=== PATIENT | male | born 1995 | race Two or more races ===

== ENCOUNTER 2019-03-06 05:01 | Emergency (ER) | payer MEDICAID ==
[~2019-03-06] VITALS: Ht 167.6 cm; Wt 68.0 kg
[2019-03-06] MEDS ORDERED: SODIUM CHLORIDE 0.9% 2,000 ML IV ONE (05:30)
[2019-03-06 06:04] LABS: Urine Bacteria FEW /hpf (None Seen); Urine Blood Negative /uL (Negative); Urine Mucus FEW (None Seen); Urine Specific Gravity 1.023 (1.001-1.035); Urine WBC 2 /hpf (0 - 3)
[2019-03-06 06:37] LABS: Alcohol, Urine < 3.0 mg/dL (0-5); Amphetamine Screen, Urine NEGATIVE (NEGATIVE); Barbiturate Scree,Urine NEGATIVE (NEGATIVE); Benzodiazephine Screen, Urine NEGATIVE (NEGATIVE); Cannabinoid Screen, Urine NEGATIVE (NEGATIVE); Cocaine Screen, Urine NEGATIVE (NEGATIVE); Opiate Scree,Urine NEGATIVE (NEGATIVE); Phencyclidine Screen, Urine NEGATIVE (NEGATIVE)
[2019-03-06 07:50] LABS: Basophils # (auto) 0 uL; Basophils % (auto) 0.1 % (0.0-2.0); Eosinophils # (auto) 0 uL; Hematocrit 38.9 % (41.0-53.0); Hemoglobin 13.4 g/dL (13.5-17.5); Lymphocytes # (auto) 0.2 uL; Lymphocytes % (auto) 2.4 % (10.0-50.0); Mean Corpuscular Hemoglobin 32.9 pg (28.0-32.0); Mean Corpuscular Hgb Conc. 34.6 g/dL (32.0-36.0); Mean Corpuscular Volume 95.1 fL (80.0-100.0); Monocytes # (auto) 0.5 uL; Monocytes % (auto) 4.6 % (0.0-12.0); Neutrophils # (auto) 9.2 uL; Neutrophils % (auto) 92.9 % (37.0-80.0); Platelet Count (auto) 213 10^3/uL (140-450); Red Blood Cells 4.09 10^6/uL (4.5-5.90); Red Cell Distribution Width 13.4 % (11.8-14.3); White Blood Cell 9.9 10^3/uL (4.4-10.8)
[2019-03-06 08:13] LABS: Alanine Aminotransferase 13 U/L (16-61); Albumin 2.8 g/dL (3.4-5.0); Anion Gap 6 (5-15); Aspartate Aminotransferase 10 U/L (15-37); BUN/Creatinine Ratio 10.9; Blood Alcohol < 3.0 mg/dL (0-5); Blood Urea Nitrogen 5 mg/dL (7-18); Carbon Dioxide 22 mmol/L (21-32); Chloride 119 mmol/L (98-107); GFR African American 294 mL/min; GFR Non-African American 243 mL/min; Glucose 75 mg/dL (74-106); Sodium 147 mmol/L (136-145)
[2019-03-06 08:16] LABS: Alkaline Phosphatase 55 U/L (45-117); Bilirubin, Total 0.5 mg/dL (0.2-1.0); Total Protein 4.8 g/dL (6.4-8.2)
[2019-03-06 08:25] LABS: Calcium 5.6 mg/dL (8.5-10.1); Potassium 2.6 mmol/L (3.5-5.1)
[2019-03-06] MEDS ORDERED: POTASSIUM CHL 20MEQ/100ML 100 ML IV SCH (08:45)
[2019-03-06] MEDS ORDERED: POTASSIUM CHL 20 Meq TABLET PO ONE ×2 (09:00→10:30)
[2019-03-06] MEDS ORDERED: POTASSIUM CHL 20MEQ/100ML 100 ML IV ONE (10:31)
[2019-03-06] MEDS: POTASSIUM CHL 20MEQ/100ML 100 ML IV SCH ×2 (10:38→12:26)
[2019-03-06 13:31] VITALS: BP 115/69
== END 2019-03-06 15:22 | disposition home or self-care (01) ==
LOC: EDBD 05:01 → ER 05:01
DX: F19.10 Other psychoactive substance abuse, uncomplicated (principal); E87.6 Hypokalemia
CPT/HCPCS: 36415; 36600; 71045; 80053; 80307; 80320; 81001; 82805; 85025; 93005; 94761; 96361; 96365; 96366; 99284; J3480; J7030; 51702; 96360